=== PATIENT | female | born 1945 | race Caucasian/White ===

== ENCOUNTER 2016-07-01 16:48 | Emergency (ER) | payer OTHER ==
[~2016-07-01] VITALS: Ht 162.6 cm; Wt 87.6 kg
[~2016-07-01 16:48] MED LIST: ASPCH81X PO; ERGO500037 PO; LEVO5TAB2 PO; LPT/40 PO; MONT1TAB3 PO; OMEG10007 PO; SYN100 PO
[2016-07-01 17:00] VITALS: BP 112/66; TEMP 36.8; Ht 162.6 cm; Wt 87.6 kg
[2016-07-01] MEDS ORDERED: BUPR150T5 PO (17:19)
[2016-07-01] MEDS ORDERED: HYDROCODONE/ACETAMOPHEN 5/325MG TAB PO ONE (17:30)
--- NOTE | 2016-07-01 18:06 | DIAGNOSTIC IMAGING REPORT ---
RIGHT RIBS UNILATERAL WITH PA CHEST CLINICAL HISTORY: FELL RT RIB PAIN Right trauma. Pain. COMPARISON STUDY: None FINDINGS: Cortical fracture right eighth rib midaxillary line. All remaining ribs are unremarkable. Right lung is clear. No evidence pneumothorax. IMPRESSION: Cortical fracture right eighth rib. No evidence pneumothorax. Electronically signed by: Trevor Heard M.D. 07/01/2016 6:05 PM Dictated Date/Time: 07/01/2016 6:04 PM
[2016-07-01] MEDS ORDERED: HYDR-5688 PO (18:22)
[2016-07-01 18:31] VITALS: PULSE 82; O2SAT 96
--- NOTE | 2016-07-02 18:00 | EMERGENCY ROOM VISIT NOTE ---
ED Visit Note First contact with patient: 17:24 Chief Complaint: Right sided rib pain. History of Present Illness: Ms. Kapoor is a 70-year-old white female who ambulates into the ED complaining of right sided rib pain. Patient reports last night approximately 22 hours ago she reports she was walking in her garage without any light on, tripped and fell and landed on the right side of her chest. She reports before the fall she was not experiencing any lightheaded or dizziness, at the time of the fall she did not strike her head or have a loss of consciousness and since the fall she has had no signs of head injury. Currently she complains of right-sided rib pain in the area of lateral aspect of ribs 8 through 10. She describes her pain as a sharp sensation. She rates her discomfort 7.5/10. Her pain is nonradiating. Her pain worsens with deep inspiration and palpation. She has had used ibuprofen and has had mild relief of her discomfort. Associated with her pain she reports she feels slightly short of breath because every time she does take a deep breath she feels like she cannot fill her lungs. She denies neck pain, back pain, cough, wheezing, hemoptysis, abdominal pain, nausea, vomiting, hematuria. Review of Systems: As noted above in history of present illness. Past Medical History: Asthma, bronchitis, pneumonia, status post cholecystectomy and hysterectomy. Current Medications: Medications Dose Route/Sig Max Daily Dose Days Date Category Dose Instructions Bupropion Hcl Xl (Bupropion Hcl) 150 Mg Tab 150 Mg PO DAILY 07/01/16 Reported Xyzal (Levocetirizine Dihydrochloride) 5 Mg Tab 1 Tab PO DAILY 90 10/07/15 Reported Synthroid (Levothyroxine Sodium) 100 Mcg Tab 100 Mcg PO DAILY 10/07/15 Reported [place]-3 (Fish Oil) 1 Ea Cap 1 Cap PO DAILY 03/24/15 Reported Aspirin Chewable (Aspirin) 81 Mg Chew 81 Mg PO DAILY 03/24/15 Reported Singulair (Montelukast Sodium) 10 Mg Tab 10 Mg PO DAILY 07/01/14 Reported Lipitor (Atorvastatin) 40 Mg Tab 40 Mg PO DAILY 07/01/14 Reported Vitamin D 55568 Unit (Ergocalciferol) 50,000 Unit Cap 50,000 Unit PO WK 07/01/14 Reported Take on Wednesday Allergies to Medications: Sulfa. Social History: Patient is currently employed; she feels safe in her home environment; she denies tobacco and alcohol use. Physical Examination: Vital Signs: Date Time Temp Pulse Resp B/P Pulse Ox O2 Delivery O2 Flow Rate FiO2 07/01/16 18:31 82 16 96 07/01/16 17:00 36.8 79 18 112/66 96 Room Air GENERAL: 70-year-old female in mild to moderate distress due to pain, nontoxic- appearing, afebrile and hemodynamically stable. NEUROLOGICAL: Awake, alert and oriented to person, place and time. Answering questions appropriately and following commands. Normal gait. Good hand eye coordination. No focal motor or sensory deficits. SKIN: Warm, dry and pink. No soft tissue eruptions or trauma noted. HEENT: Atraumatic and normocephalic. BACK: No tenderness over the bony cervical, thoracic and lumbar spine. Full range of motion of the cervical spine. No CVA tenderness. THORAX: Lungs sounds are clear to auscultation and equal bilaterally with symmetrical chest wall. No wheezing, rales or rhonchi. Moderate tenderness over the lateral aspects of ribs 8 through 10. No palpable bony deformity, bony crepitus, subcutaneous air or ecchymosis. ABDOMEN: Flat, soft and nontender. Positive bowel sounds in all quadrants. ED Course: Patient is assessed as noted above. Patient was given one [place] 5/325 mg tablet by mouth for pain. PA Chest with Right Rib X-Rays: Were read by myself and the radiologist and shows no acute infiltrates, effusions or pneumothorax. Normal heart silhouette. Cortical fracture of the right eighth rib in the midaxillary line. Patient was educated about tonight's findings and instructed on her treatment plan; she verbalizes understanding and agreement with this plan. Clinical Impression: Right eighth rib fracture. Status post fall. Disposition: Patient discharged home in stable condition; prior to departure she was reassessed and subjectively reported she was feeling better and rated her discomfort 6/10. Plan: Comfort measures were discussed with the patient including the use of a sliding pain medication scale of ibuprofen, acetaminophen and [place] and ice. Patient was given proper precautions for narcotic use and her name was checked on the [facility] database and no red flags were noted. Patient was encouraged to do deep breathing exercises. Patient was encouraged to follow-up with her primary care provider for recheck if no better in 4-5 days. Patient was encouraged return to the ED for worsening/uncontrolled pain, fevers , shortness of breath, coughing up blood or any new/concerning symptoms.
== END 2016-07-01 18:32 | disposition home or self-care (01) ==
LOC: C.EDB 16:49 → C.EDD 18:32
DX: S22.31XA Fracture of one rib, right side, initial encounter for closed fracture (principal); W19.XXXA Unspecified fall, initial encounter; J45.909 Unspecified asthma, uncomplicated

== ENCOUNTER 2016-07-12 13:07 | Emergency (ER) | payer OTHER ==
[~2016-07-12] VITALS: Ht 162.6 cm; Wt 87.5 kg
[~2016-07-12 13:07] MED LIST changes: +BUPR150T5 PO; +HYDR-5688 PO
[2016-07-12 13:15] VITALS: TEMP 36.9; Ht 162.6 cm; Wt 87.5 kg
--- NOTE | 2016-07-12 13:56 | DIAGNOSTIC IMAGING REPORT ---
RIGHT SHOULDER 3 VIEWS HISTORY: R shoulder pain; fall Right COMPARISON: None. FINDINGS: There is no fracture or dislocation. Soft tissues are unremarkable. No radiopaque foreign bodies. IMPRESSION: No fractures. Electronically signed by: Cecilio Dudley M.D. 07/12/2016 1:55 PM Dictated Date/Time: 07/12/2016 1:54 PM
[2016-07-12] MEDS ORDERED: TRAM-10 PO (14:07)
[2016-07-12 14:13] VITALS: BP 137/88; PULSE 75; O2SAT 95
--- NOTE | 2016-07-12 19:44 | EMERGENCY ROOM VISIT NOTE ---
ED Visit Note First contact with patient: 13:17 Chief Complaint: Right shoulder pain. History of Present Illness: Ms. Kapoor is a 70-year-old white female who ambulates into the ED complaining of anterior right shoulder pain. I had seen vidhya gema approximately 11 days ago after she tripped and fell and struck her right ribs on the ground. At that time she was diagnosed with a nondisplaced right-sided rib fracture. She reports since being discharged she started having mild pain over the anterior right shoulder and has gradually increased in intensity over the last 11 days. Currently she describes her pain as a deep achy sensation. She rates her discomfort 8/10. Her pain is nonradiating. Her pain worsens with palpation over the anterior humeral head and abduction of the shoulder. She does report mild relief of her discomfort when she is taking her prescribed [place] for her rib pain. She denies any associated symptoms including neck pain, thoracic back pain, scapular pain, clavicle pain, elbow pain, right upper extremity weakness/numbness/tingling. She also denies any previous significant injuries or surgeries to the right shoulder. Review of Systems: As noted above in history of present illness. Past Medical History: Asthma, bronchitis, pneumonia, status post cholecystectomy and hysterectomy. Current Medications: Medications Dose Route/Sig Max Daily Dose Days Date Category Dose Instructions Ultram (Tramadol HCl) 50 Mg Tab 1 Tab PO Q6H PRN 07/12/16 Rx For Initial Treatment Bupropion Hcl Xl (Bupropion Hcl) 150 Mg Tab 150 Mg PO DAILY 07/01/16 Reported Xyzal (Levocetirizine Dihydrochloride) 5 Mg Tab 1 Tab PO DAILY 90 10/07/15 Reported Synthroid (Levothyroxine Sodium) 100 Mcg Tab 100 Mcg PO DAILY 10/07/15 Reported [place]-3 (Fish Oil) 1 Ea Cap 1 Cap PO DAILY 03/24/15 Reported Aspirin Chewable (Aspirin) 81 Mg Chew 81 Mg PO DAILY 03/24/15 Reported Singulair (Montelukast Sodium) 10 Mg Tab 10 Mg PO DAILY 07/01/14 Reported Lipitor (Atorvastatin) 40 Mg Tab 40 Mg PO DAILY 07/01/14 Reported Vitamin D 53375 Unit (Ergocalciferol) 50,000 Unit Cap 50,000 Unit PO WK 07/01/14 Reported Take on Wednesday Allergies to Medications: Sulfa. Social History: Patient is currently employed; she feels safe in her home environment; she denies tobacco and alcohol use. Physical Examination: Vital Signs: Date Time Temp Pulse Resp B/P Pulse Ox O2 Delivery O2 Flow Rate FiO2 07/12/16 14:13 75 137/88 95 07/12/16 13:15 36.9 73 18 112/67 98 Room Air GENERAL: 70-year-old female in mild to moderate distress due to pain, nontoxic- appearing, afebrile and hemodynamically stable. NEUROLOGICAL: Awake, alert and oriented to person, place and time. Answering questions appropriately and following commands. Normal gait. Good hand eye coordination. No focal motor or sensory deficits. SKIN: Warm, dry and pink. No soft tissue trauma noted. BACK: No tenderness over the bony cervical and thoracic spine. Full range of motion of the cervical spine. RIGHT UPPER EXTREMITY: No gross bony deformity. No tenderness over the clavicle , acromioclavicular joint, scapula. Moderate tenderness over the anterior humeral head without bony deformity, bony crepitus, swelling or ecchymosis. Mild decreased range of motion predominantly in abduction of the shoulder but she does have full range of motion of abduction, flexion, extension, internal and external rotation and horizontal flexion and extension of the shoulder. Throughout the extremities was warm and pink and capillary refill was brisk. Distal pulses were intact and she had intact light sensations throughout the extremity. ED Course: Patient is assessed as noted above. Right Shoulder X-Rays: Were read by myself and the radiologist and shows no acute fractures or dislocations. Patient's arm was placed in a sling. Patient was educated about today's findings and instructed on her treatment plan ; she verbalizes understanding and agreement with this plan. Clinical Impression: Anterior right shoulder pain. Decision-Making: Initially my differential diagnosis I considered fracture, dislocation, contusion, bicipital tendinitis, muscle strain and other causes. Disposition: Patient discharged home in stable condition; prior to departure she was reassessed and subjectively reported she was feeling the same. Plan: Patient was placed on a sliding pain scale of ibuprofen, acetaminophen and Ultram; patient was encouraged not to use any Ultram with her other narcotics. Other comfort measures were discussed with the patient including ice, rest and use of sling. Patient was encouraged to follow-up with her PCP for recheck if no better in 4- 5 days. Patient was encouraged return to the ED for worsening/uncontrolled pain, uncontrolled swelling, arm weakness/numbness/tingling or any new/concerning symptoms.
== END 2016-07-12 14:14 | disposition home or self-care (01) ==
LOC: C.EDB 13:07 → C.EDD 14:14
DX: M25.511 Pain in right shoulder (principal); J45.909 Unspecified asthma, uncomplicated; Z79.82 Long term (current) use of aspirin; Z79.899 Other long term (current) drug therapy; Z87.01 Personal history of pneumonia (recurrent); Z87.09 Personal history of other diseases of the respiratory system